=== PATIENT | female | born 1950 | race Caucasian/White ===

== ENCOUNTER 2017-10-27 22:11 | Emergency (ER) | payer MEDICARE ==
[2017-10-27] MEDS: ONDANSETRON PF 4 MG/2 ML VIAL. IV (22:56)
[2017-10-27] MEDS: IV NORMAL SALINE 1000ML BAG 1,000 ML IV (22:58)
[2017-10-27] MEDS: fentaNYL PF VIAL 100 MCG/2 ML VIAL IV (22:58)
[2017-10-27 23:07] LABS: ADD MAN DIFF? NO
[2017-10-27 23:10] LABS: BASO # 0.1 x10^3/uL (0.0-0.2); BASO % 1 % (0-3); EOS # 0.2 x10^3/uL (0.0-0.7); EOS % 2 % (0-3); HEMATOCRIT 45.6 % (36.0-47.0); HEMOGLOBIN 15.8 g/dL (12.0-15.5); LYMPH % 26 % (24-48); MEAN CORPUSCULAR HEMOGLOBIN 33 pg (25-35); MEAN CORPUSCULAR HGB CONC 35 g/dL (31-37); MEAN CORPUSCULAR VOLUME 95 fL (79-100); MONO # 0.7 x10^3/uL (0.0-1.1); MONO % 6 % (0-9); NEUT # 7.4 x10^3uL (1.8-7.7); NEUT % 65 % (31-73); PLATELET COUNT 393 x10^3/uL (140-400); RED CELL DISTRIBUTION WIDTH 13.5 % (11.5-14.5); WHITE BLOOD COUNT 11.4 x10^3/uL (4.0-11.0)
[2017-10-27 23:30] LABS: ANION GAP 8 (6-14); BLOOD UREA NITROGEN 16 mg/dL (7-20); BUN/CREATININE RATIO 20 (6-20); CALCIUM 9.7 mg/dL (8.5-10.1); CARBON DIOXIDE 32 mmol/L (21-32); CHLORIDE 100 mmol/L (98-107); CREATININE 0.8 mg/dL (0.6-1.0); GFR 71.5; GLUCOSE 112 mg/dL (70-99); POTASSIUM 3.7 mmol/L (3.5-5.1); SODIUM 140 mmol/L (136-145)
[2017-10-27 23:32] LABS: TROPONINI < 0.017 ng/mL (0.000-0.055)
[2017-10-27 23:35] LABS: ALBUMIN 4.4 g/dL (3.4-5.0); ALBUMIN/GLOBULIN RATIO 0.9 (1.0-1.7); ALK PHOS 80 U/L (46-116); ALT (SGPT) 32 U/L (14-59); AST (SGOT) 31 U/L (15-37); LIPASE 164 U/L (73-393); TOTAL BILIRUBIN 0.4 mg/dL (0.2-1.0); TOTAL PROTEIN 9.4 g/dL (6.4-8.2)
[2017-10-28] MEDS: LIDO:MAALOX 1:1 20 ML SINGLE DOSE. SWSW (00:15)
== END 2017-10-28 00:36 | disposition home or self-care (01) ==
LOC: ER 10-28 00:36
DX: R10.13 Epigastric pain (principal); R11.2 Nausea with vomiting, unspecified; I10 Essential (primary) hypertension
CPT/HCPCS: 36415; 76705; 80053; 83690; 84484; 85025; 93005; 96361; 96374; 96375; 99285-25; J2405; J3010; J7030

== ENCOUNTER → 2020-10-07 | Outpatient (CLI) | payer MEDICARE ==
[2017-10-27 22:22] VITALS: BP 166/96
[~2020-10-07] MED LIST: CYCL10TA2 PO; IOHEXOL 300 MG/ML 50 ML VIAL. INT ART ONE; LIDOCAINE 1% Multi-Dose 20 ML VIAL. ID ONE; NAPR-699 PO; ONDA4TAB12 PO
--- NOTE | 2020-10-07 16:24 | KCIC ---
Examination: CT left shoulder arthrogram HISTORY: History of left shoulder pain, shoulder impingement COMPARISON: None TECHNIQUE: Axial CT images of the left shoulder performed after arthrogram injection. Coronal and sag ittal reformats performed Exposure: One or more of the following individualized dose reduction techniques were utilized for thi s examination: 1. Automated exposure control 2. Adjustment of the mA and/or kV according to patient size 3. Use of iterative reconstruction technique FINDINGS: The long head of the biceps tendon is not well-visualized in the bicipital groove.There is full-thick ness tear of the anterior portion of the supraspinatus tendon with extension of contrast from the milind ulder joint into the subacromial subdeltoid bursa. The muscle bulk grossly appears unremarkable. The acromion is downsloping with the inferior aspect of the acromion abuts the superior aspect of sup raspinatus tendon. The acromion is type II. Mild degenerative changes acromioclavicular joint, glenohumeral joint. 2 small foci of air identified in the shoulder joint anteriorly likely secondary to injection. IMPRESSION: 1. Full-thickness tear of the anterior portion of the supraspinatus tendon with extension of contras t from the shoulder joint into the subacromial subdeltoid bursa. 2. The inferior aspect of the acromion abuts the superior aspect of the supraspinatus tendon. Correl ate for impingement. 3.The long head of the biceps tendon is not well-visualized in the bicipital groove. Electronically signed by: Gregory Abreu MD (10/07/2020 4:22 PM) [id number]
--- NOTE | 2020-10-07 17:33 | KCIC ---
EXAM: FLUOROSCOPY GUIDED left SHOULDER ARTHROGRAM History left shoulder impingement, pain COMPARISON: None available TECHNIQUE: Consent: A written, informed consent was obtained from the patient prior to the procedure. The skin was prepped and draped in the usual fashion under aseptic precautions. Dilute 1% lidocaine w as used for local anesthesia. Under fluoroscopic guidance a 22 gauge long spinal needle was used to access the shoulder joint. A 16 cc mixture of 10 cc of diluted contrast and 10 cc of saline was administered. The patient was transferred to the CT suite. Total fluoroscopic time 17 seconds. Total fluoroscopic images 1. IMPRESSION: Technically successful left shoulder arthrogram. Electronically signed by: Gregory Abreu MD (10/07/2020 5:31 PM) [id number]
== END | disposition home or self-care (01) ==
LOC: KCIC 12:25
PROVIDERS: ATTEND Orthopaedic Surgery
DX: M25.512 Pain in left shoulder (principal); M75.42 Impingement syndrome of left shoulder; Z87.891 Personal history of nicotine dependence; Z79.899 Other long term (current) drug therapy; Z72.89 Other problems related to lifestyle
CPT/HCPCS: 23350; 73201; 77002; J3490; Q9967; 73040

== ENCOUNTER 2020-10-25 07:13 | Day surgery (SDC) | payer MEDICARE ==
[~2020-10-25] VITALS: Ht 154.9 cm; Wt 78.0 kg
[~2020-10-25 07:13] MED LIST changes: +ALPR0.5T6 PO; +ASPI-630 PO; +IBUP-1027 PO; -IOHEXOL 300 MG/ML 50 ML VIAL. INT ART ONE; +IV RINGERS,LACTATED 1000ML 1,000 ML IV SCH; -LIDOCAINE 1% Multi-Dose 20 ML VIAL. ID ONE; +MORPHINE SULFATE 2 MG/ML VIAL. IVP PRN; +OXYC1TAB15 PO; +PROCHLORPERAZINE 10 MG/2 ML VIAL. IVP PRN; +fentaNYL PF VIAL 100 MCG/2 ML VIAL IVP PRN
[2020-10-25] MEDS ORDERED: ROCURONIUM 50 MG/5 ML VIAL. ONE (08:23)
[2020-10-25] MEDS ORDERED: LIDOCAINE 2% PF 5 ML VIAL. ONE (08:23)
[2020-10-25] MEDS ORDERED: PROPOFOL 10 MG/ML (20ML) VIAL. IV ONE (08:23)
[2020-10-25] MEDS ORDERED: fentaNYL PF VIAL 250 MCG/5 ML VIAL ONE (08:24)
[2020-10-25] MEDS ORDERED: BUPIVACAINE-EPI 0.25% 30 ML VIAL KIT. ONE ×2 (09:16)
[2020-10-25] MEDS ORDERED: EPINEPHrine VIAL 30 MG/30 ML VIAL ONE (09:16)
[2020-10-25] MEDS ORDERED: SEVOFLURANE 61 TO 120 MINUTES. IH ONE (10:38)
[2020-10-25] MEDS ORDERED: PHENYLEPHRINE 10 MG/ML VIAL. ONE (10:39)
[2020-10-25] MEDS ORDERED: DEXAMETHASONE SOD PHOS 4 MG/ML VIAL ONE (10:39)
[2020-10-25] MEDS ORDERED: PHENYLEPHRINE in 0.9% NACL PF 1 MG/10 ML SYRINGE. IV ONE (10:39)
[2020-10-25] MEDS ORDERED: ONDANSETRON PF 4 MG/2 ML VIAL. ONE (10:39)
[2020-10-25] MEDS ORDERED: ePHEDrine PF IN SALINE 50 MG/10 ML SYRINGE. IV ONE (10:39)
[2020-10-25] MEDS ORDERED: NEOSTIGMINE METHYLSULFATE 5 MG/5 ML SYRINGE. ONE (10:51)
[2020-10-25] MEDS ORDERED: GLYCOPYRROLATE 1 MG/5 ML VIAL. ONE (10:51)
--- NOTE | 2020-10-25 11:31 | PDOC1 ---
History and Physical Date of Admission Date of Admission DATE: 10/25/20 TIME: 11:25 Identification/Chief Complaint Chief Complaint Left shoulder rotator cuff tear Source Source: Chart review, Patient History of Present Illness History of Present Illness 70-year-old woman with left shoulder pain, and rotator cuff tear. She is right handed and retired from working in a [employer]. She locates variable shoulder pain over the past 3-4 months, worse usually anteriorly but also occasionally ne ar her cuff insertion radiating down her arm. Her pain is worse at night, reaching overhead, putting on seatbelt, holding a gallon of milk. She has had a cortisone injection with physical therapy that was unhelpful. History of breast cancer with lymphedema in the arms. The CT scan showed a full-thickness rotator cuff tear. She is here today for elective left shoulder arthroscopy, subacromial decompression, and open rotator cuff repair. Past Medical History Past Medical History SD, bowel obstruction, breast CA Past Surgical History Past Surgical History: Mastectomy Social History Smoke: Quit ALCOHOL: occassional Current Medications Current Medications Current Medications Fentanyl Citrate (Fentanyl 2ml Vial) 25 mcg PRN Q5MIN PRN IVP MILD PAIN 1-3; Start 10/25/20 at 06:00; Stop 10/26/20 at 05:59 Fentanyl Citrate (Fentanyl 2ml Vial) 50 mcg PRN Q5MIN PRN IVP MODERATE PAIN 4- 6; Start 10/25/20 at 06:00; Stop 10/26/20 at 05:59 Morphine Sulfate (Morphine Sulfate) 1 mg PRN Q10MIN PRN IVP SEVERE PAIN 7-10; Start 10/25/20 at 06:00; Stop 10/26/20 at 05:59 Ringer's Solution 1,000 ml @ 30 mls/hr Q24H IV ; Start 10/25/20 at 06:00; Stop 10/25/20 at 17:59 Hydromorphone HCl (Dilaudid) 0.5 mg PRN Q10MIN PRN IVP SEVERE PAIN 7-10, 2nd CHOICE; Start 10/25/20 at 06:00; Stop 10/26/20 at 05:59 Prochlorperazine Edisylate (Compazine) 5 mg PACU PRN PRN IVP NAUSEA, MRX1; Start 10/25/20 at 06:00; Stop 10/26/20 at 05:59 Cefazolin Sodium/ Dextrose 50 ml @ 100 mls/hr 1X PREOP PRN IV PRIOR TO PROCEDURE Last administered on 10/25/20at 09:53; Start 10/25/20 at 06:00; Stop 10/25/20 at 18:00 Propofol (Diprivan) 200 mg STK-MED ONCE IV ; Start 10/25/20 at 08:23; Stop 10/25/20 at 08:24; Status DC Lidocaine HCl (Lidocaine Pf 2% Vial) 5 ml STK-MED ONCE .ROUTE ; Start 10/25/20 at 08:23; Stop 10/25/20 at 08:24; Status DC Rocuronium Campbell (Zemuron) 50 mg STK-MED ONCE .ROUTE ; Start 10/25/20 at 08:23; Stop 10/25/20 at 08:24; Status DC Fentanyl Citrate (Fentanyl 5ml Vial) 250 mcg STK-MED ONCE .ROUTE ; Start 10/25/20 at 08:24; Stop 10/25/20 at 08:24; Status DC Epinephrine HCl (Adrenalin) 30 mg STK-MED ONCE .ROUTE Last administered on 10/25/20at 10:14; Start 10/25/20 at 09:16; Stop 10/25/20 at 09:16; Status DC Bupivacaine HCl/ Epinephrine Bitart (Sensorcain-Epi 0.25% Kit) 30 ml STK-MED ONCE .ROUTE Last administered on 10/25/20at 10:14; Start 10/25/20 at 09:16; Stop 10/25/20 at 09:17; Status DC Bupivacaine HCl/ Epinephrine Bitart (Sensorcain-Epi 0.25% Kit) 30 ml STK-MED ONCE .ROUTE Last administered on 10/25/20at 10:14; Start 10/25/20 at 09:16; Stop 10/25/20 at 09:17; Status DC Sevoflurane (Ultane) 60 ml STK-MED ONCE IH ; Start 10/25/20 at 10:38; Stop 10/25/20 at 10:39; Status DC Dexamethasone Sodium Phosphate (Decadron) 4 mg STK-MED ONCE .ROUTE ; Start 10/25/20 at 10:39; Stop 10/25/20 at 10:39; Status DC Ondansetron HCl (Zofran) 4 mg STK-MED ONCE .ROUTE ; Start 10/25/20 at 10:39; Stop 10/25/20 at 10:39; Status DC Phenylephrine HCl (PHENYLEPHRINE in 0.9% NACL PF) 1 mg STK-MED ONCE IV ; Start 10/25/20 at 10:39; Stop 10/25/20 at 10:39; Status DC Phenylephrine HCl (Jasvir-Synephrine Inj) 10 mg STK-MED ONCE .ROUTE ; Start 1 at 10:39; Stop 10/25/20 at 10:39; Status DC Ephedrine Sulfate (ePHEDrine PF IN SALINE SYRINGE) 50 mg STK-MED ONCE IV ; Start 10/25/20 at 10:39; Stop 10/25/20 at 10:39; Status DC Glycopyrrolate (Robinul) 1 mg STK-MED ONCE .ROUTE ; Start 10/25/20 at 10:51; Stop 10/25/20 at 10:51; Status DC Neostigmine Campbell (Neostigmine Methylsulfate) 5 mg STK-MED ONCE .ROUTE ; Start 10/25/20 at 10:51; Stop 10/25/20 at 10:51; Status DC Active Scripts Active Reported Ibuprofen 400 Mg Tablet 400 Mg PO PRN Q6HRS PRN Percocet 5-325 Mg Tablet (Oxycodone/Acetaminophen) 1 Each Tablet 1 Tab PO Q4- 6HRS PRN MDD 4 Tablet(s) 30 Days Aspirin 81 Mg Tab.chew 1 Tab PO DAILY Alprazolam 0.5 Mg Tablet 1 Tab PO HS Allergies Allergies: Coded Allergies: No Known Drug Allergies (Unverified , 04/06/16) ROS Review of System OPHTHALMOLOGY: Blurred vision none. Double vision denies. Change in vision none. ENT: Hearing loss none. Change in voice denies. Rhinorrhea none. CARDIOLOGY: Palpitations none. Shortness of breath denies. Chest pain denies. CONSTITUTIONAL: Fever denies. Chills denies. Weight gain denies. Weakness none. weight loss denies. Fatigue none. GASTROENTEROLOGY: Diarrhea denies. Vomiting none. Dysphagia none. UROLOGY: Voiding normally yes. Hematuria none. MUSCULOSKELETAL: Chronic back or neck pain denies. Swelling of the feet, hands, ankles and /or legs denies. Joint pain admits. Tingling/numbness no. DERMATOLOGY: Rash denies. Lumps none. NEUROLOGY: Dizziness/lightheadedness denies. Double vision, temporary blindness denies. Tingling/numbness admits. PSYCHOLOGY: Change in mood or personality denies. Memory loss none. ENDOCRINOLOGY: Obesity denies. Fatigue none. Weight loss none. HEMATOLOGY/LYMPH: Hepatitis denies. Enlarged lymph nodes denies. She has had lymph node dissection with her mastectomy and is at risk of lymphedema of the arms. Physical Exam General: Alert, Cooperative HEENT: Atraumatic Lungs: Normal air movement Heart: RRR Abdomen: Soft Extremities: Other (Gross alignment of the LEFT shoulder is normal. Tenderness to palpation of the subacromial bursa, biceps insertion, anterior glenoid, and greater tuberosity. Strength is 4/5 for the supraspinatus and for the infraspinatus. No evidence of instability. Range of motion is 135/70/30/L1 with very painful arc. Positive Neer's, Steve, and Ilya's impingement tests. Skin, pulses, and sensation normal. ) Vitals Vitals Vital Signs Date Time Temp Pulse Resp B/P (MAP) Pulse Ox O2 Delivery O2 Flow Rate FiO2 10/25/20 08:01 98.3 85 20 127/86 97 Room Air 98.3 Images Images [facility] [id number] [place] [address] IMAGING REPORT Signed PATIENT: ILEANA MENDEZ ACCOUNT: [id number] : 1950 LOCATION: [facility] AGE: 70 SEX: F EXAM STATUS: REG CLI ORD. PHYSICIAN: MARIBEL ALEXIS MD REASON: Left shoulder pain, shoulder impingement PROCEDURE: CT UPPER EXTREMTY W/CONTRST LT Examination: CT left shoulder arthrogram HISTORY: History of left shoulder pain, shoulder impingement COMPARISON: None TECHNIQUE: Axial CT images of the left shoulder performed after arthrogram inje ction. Coronal and sagittal reformats performed Exposure: One or more of the following individualized dose reduction techniques were utilized for this examination: 1. Automated exposure control 2. Adjustment of the mA and/or kV according to patient size 3. Use of iterative reconstruction technique FINDINGS: The long head of the biceps tendon is not well-visualized in the bicipital groove.There is full- thickness tear of the anterior portion of the supraspinatus tendon with extension of contrast from the shoulder joint into the subacromial subdeltoid bursa. The muscle bulk grossly appears unremarkable. The acromion is downsloping with the inferior aspect of the acromion abuts the superior aspect of supraspinatus tendon. The acromion is type II. Mild degenerative changes acromioclavicular joint, glenohumeral joint. 2 small foci of air identified in the shoulder joint anteriorly likely secondary to injection. IMPRESSION: 1. Full-thickness tear of the anterior portion of the supraspinatus tendon with extension of contrast from the shoulder joint into the subacromial subdeltoid bursa. 2. The inferior aspect of the acromion abuts the superior aspect of the supraspinatus tendon. Correlate for impingement. 3.The long head of the biceps tendon is not well-visualized in the bicipital groove. Electronically signed by: Gregory Abreu MD (10/07/2020 4:22 PM) [id number] VTE Prophylaxis Ordered VTE Prophylaxis Devices: Yes VTE Pharmacological Prophylaxi: No Assessment/Plan Assessment/Plan She has a painful shoulder, and a full-thickness rotator cuff tear. She tried nonoperative treatment with cortisone injection and physical therapy without relief. She and I discussed the risks benefits and alternatives of rotator cuff repair and arthroscopic subacromial decompression. There are potential risks of failure of healing, retear, stiffness, continued pain or weakness, neurovascular injury, infection, or other potential surgical or anesthetic complications. All of her questions about surgery were answered and she desires to proceed. Justifications for Admission Other Justification MARIBEL ALEXIS MD October 25, 2020 11:31
--- NOTE | 2020-10-25 11:31 | PDOC4 ---
Operative Note Operative Note Date of Procedure: December 22, 2019 Pre-Op Diagnosis: Tear of left supraspinatus tendon - M75.102 Subacromial impingement of left shoulder - M75.42 Post-Op Diagnosis: same Procedure: Repair of ruptured musculotendinous cuff (rotator cuff) open, acute CPT 80216 Arthroscopy, shoulder, surgical decompression of subacromial space, with partial acromioplasty CPT 85894 Surgeon: Maribel Riddle MD Dredge Pump Operator: SATHISH Wolf Anesthesia: General EBL: 25 mL Specimens Obtained: none Complications: none Drains: none Findings: Impingement syndrome with a prominent anterior acromion. Full- thickness supraspinatus rotator cuff tear at the footprint. Repair easily obtained without tension. Implants: Arthrex swivel lock anchors 4.75 mm x 4 Indications for Procedure: This patient is a 66-year-old with shoulder pain, and findings of impingement syndrome and evidence of rotator cuff tear on examination. A CT scan confirms the rotator cuff tear, full-thickness of the supraspinatus. 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 We discussed the potential risks of infection, neurovascular injury, fracture, bleeding, need for revision surgery, or other potential surgical or anesthetic complications. We also discussed healing expectations including postoperative use of DonJoy sling, need for physical therapy, and refrain from overhead lifting for 3 months. She is here today for elective left shoulder arthroscopy, subacromial de compression, and rotator cuff repair. Procedure in Detail: The patient was identified in the preoperative holding area. The correct left shoulder was marked by me. The patient was taken to the operating room where general anesthesia was used. The patient was positioned in the beachchair position with the bony prominences well-padded and the eyes protected. Preoperative antibiotics were given intravenously. A timeout procedure was performed. Under sterile technique 25 mL of bupivacaine with epinephrine was injected into the subacromial space and glenohumeral joint. The limb was then thoroughly prepared with surgical ChloraPrep solution circumferentially. Sterile waterproof arthroscopy shoulder drapes were applied, along with an impervious stockinette over the arm, and a Spider arm umaña. Posterior, posterolateral, lateral, and anterior arthroscopy portals were used. The glenohumeral joint showed normal articular surfaces, and a normal bare area of the central glenoid. The labrum shows minor degenerative changes but no tear. The biceps tendon is absent. The rotator cuff does appear to have a full-thickness tear. There is no shoulder instability or evidence of dislocation. The subacromial space was entered. The anterior acromion was prominent. The C onMed Edge thermal energy bipolar device was used for hemostasis and to resect the undersurface periosteum exposing the prominent anterior acromion. A 6.0 mm oval santiago was used for the acromioplasty. A three-stage acromioplasty was performed, with the santiago first laterally, removing anterior acromion, using the distal clavicle as a reference. The santiago was then placed in the posterior portal, and a cutting block technique was used for smoothing of the lateral edge of the acromion tapering the anterior acromion into a Bigliani type I configuration. Final smoothing of the acromion was performed with the santiago again in the lateral portal, and direct arthroscopic visualization. The previously very tight subacromial space was now nicely decompressed. The arthroscopic instruments were removed. Outer gloves were changed. The skin was prepared a second time with ChloraPrep solution. An anterior lateral deltoid raphae splinting incision was used. Care was made not to extend more than 4 cm distally so as to avoid axillary nerve injury. Self-retaining retractors were placed. My library serials assistant used an [employer]-Leonardo retractor in addition to the self-retain ing retractors. The biceps tendon was not visualized and is likely retracted distally. The palpation of the rotator cuff shows full-thickness tear tear of the anterior supraspinatus The motorized bur was used to prepare the sclerotic bone at the footprint. The 2 medial 4.75 mm swivel lock anchors with swaged suture tapes were used. All of the medial sutures were deployed with Arthrex scorpion device, about 16 mm from the distal edge of the cuff. The medial mattress sutures were secured and tied, and my library serials assistant held tension reducing the cuff while the sutures were tied. The swaged suture tapes were then trimmed, the tapes were crossed, and the 2 lateral row anchors were now placed at the lateral aspect of the footprint for secure speed bridge repair. The additional sutures from the lateral row anchors was used posteriorly and anteriorly to secure the edges of the dog ear of the tear. A secure and tension-free repair was obtained. The shoulder was taken through a range of motion, and the repair security confirmed. Copious saline irrigation was used. I closed the fascia of the deltoid with #0 Vicryl suture in a [id number] fashion. My library serials assistant then completed the subcutaneous closure with #2-0 Vicryl. My library serials assistant repaired the skin incision with #3-0 STRATATIX in the portals with #3-0 Prolene. We injected an additional 30 mL of bupivacaine with epinephrine. We placed Xeroform and bulky sterile dressings. We then applied a DonJoy UltraSling. There were no apparent complications. Needle and sponge counts were correct. MARIBEL RIDDLE MD October 25, 2020 11:31
[2020-10-25] MEDS ORDERED: HYDROmorphone 2 MG/ML VIAL ONE (12:11)
[2020-10-25] MEDS: HYDROmorphone 2 MG/ML VIAL IVP PRN ×3 (12:18→12:59)
[2020-10-25] MEDS ORDERED: PROCHLORPERAZINE 10 MG/2 ML VIAL. ONE (12:33)
[2020-10-25] MEDS ORDERED: oxyCODONE/APAP 5/325 1 TAB TABLET PO PRN ×3 (12:45)
[2020-10-25 14:00] VITALS: BP 115/83
== END 2020-10-25 14:45 | disposition home or self-care (01) ==
LOC: SURG 07:13
PROVIDERS: ATTEND Orthopaedic Surgery
DX: M75.102 Unspecified rotator cuff tear or rupture of left shoulder, not specified as traumatic (principal); M75.42 Impingement syndrome of left shoulder; E66.9 Obesity, unspecified; M19.90 Unspecified osteoarthritis, unspecified site; F41.9 Anxiety disorder, unspecified; Z87.891 Personal history of nicotine dependence; Z79.82 Long term (current) use of aspirin; Z79.899 Other long term (current) drug therapy; Z98.890 Other specified postprocedural states; Z72.89 Other problems related to lifestyle
CPT/HCPCS: 23140; 29826; 29827; A4565; A4928; A4930; A6449; A6450; C1713; J0171; J0780; J1100; J1170; J2370; J2405; J2704; J2710; J3010; J3490; A4223; A4452